=== PATIENT | female | born 1950 | race Hispanic/Latino ===

== ENCOUNTER → 2018-05-10 | Day surgery (SDC) | payer MEDICARE ==
[2018-05-02 15:05] LABS: BASOPHILS % 0.3 % (0.0-1.0); EOSINOPHILS # (AUTO) 0.1 (0.0-0.4); EOSINOPHILS % 0.6 % (0.0-6.0); HEMATOCRIT 45.8 % (34.2-44.1); HEMOGLOBIN 14.5 g/dL (12.0-16.0); LYMPHOCYTES # (AUTO) 1.6 (1.0-3.2); LYMPHOCYTES % 17.1 % (18.0-39.1); MEAN CORPUSCULAR HEMOGLOBIN 28.8 pg (28-32); MEAN CORPUSCULAR HGB CONC 31.7 g/dL (31-35); MEAN CORPUSCULAR VOLUME 91.1 fL (81-99); MONOCYTES # (AUTO) 0.6 (0.2-0.8); MONOCYTES % 6.6 % (4.4-11.3); NEUTROPHILS # (AUTO) 6.9 (2.1-6.9); NEUTROPHILS % 75.2 % (38.7-80.0); PLATELET COUNT 192 x10e3/uL (140-360); RED BLOOD COUNT 5.03 x10e6/uL (3.6-5.1); RED CELL DISTRIBUTION WIDTH 13.7 % (11.7-14.4)
[2018-05-02 15:25] LABS: ANION GAP 13.9 mmol/L (8-16); BLOOD UREA NITROGEN 14 mg/dL (7-26); BUN/CREATININE RATIO 21 (6-25); CALCIUM 9.4 mg/dL (8.4-10.2); CARBON DIOXIDE 27 mmol/L (22-29); CHLORIDE 97 mmol/L (98-107); CREATININE, SERUM 0.67 mg/dL (0.57-1.11); EST GLOMERULAR FILTRATION RATE > 60 ML/MIN (60-); GLUCOSE 129 mg/dL (74-118); POTASSIUM 3.9 mmol/L (3.5-5.1); SODIUM 134 mmol/L (136-145)
[~2018-05-10] MED LIST: ATORVASTATIN CA40 MG PO; BALANCED SALT SOLN (OPTH) 15 ML BTL IO ONE; BUPIVACAINE HC 0.75% PF 10ML VIAL INJ ONE; CHONDR SU A NA/HYALUR SOD 1 EACH KIT IO ONE; CYCLOPENTOLATE HCL 1% OPTH SOLN 2ML BTL ONE; EPINEPHRINE HCL 1:1000 1ML 1 MG/ML AMP ONE; FARXIGA PO; FENTANYL CITRATE/PF 100MCG/2 ML INJ ONE; GATIFLOXACIN(OPTH) 5 ML LIQD ONE; GLIPIZIDE XL10 MG PO; LIDOCAINE 2%/ EPINEPHRINE 20ML MDV ONE; LIDOCAINE HCL-PF 4% 40 MG/1 ML 5ML AMP ONE; LOSARTAN POTASS25 MG PO; METFORMIN HCL1000 MG PO; MULTIVITAMINS1 EAC7 PO; PHENYLEPHRINE HCL 2 ML DROPS ONE; PILOCARPINE HCL(OPTH) 15 ML LIQD ONE; POVIDONE IODINE 5% (OPTH) 30 ML BTL ONE; PROPOFOL IV EMULSION 10 MG/ML 20 ML VIAL ONE; TOBRAMYCIN/DEXAMETHASONE(OPTH) 3.5 GM TUBE ONE; VITAMIN D250000 UNIT PO
--- OUTSIDE RECORDS SUMMARY | 2018-05-10 07:43 | XMS REPORT | Continuity of Care Document ---
Author Author [facility] Interface Address Unknown Phone Unavailable Problems Problem Status Onset Date Classification Date Reported Comments Source ROUTINE MAMMO Active 01/24/2018 [facility] Elevated blood pressure reading without diagnosis of hypertension Active Problem 05/09/2018 [facility] Age-related osteoporosis without current pathological fracture Active Problem 05/09/2018 [facility] Obesity, morbid, BMI 40.0-49.9 Active Problem 05/09/2018 [facility] Primary Breast cancer screening Active Diagnosis 01/24/2018 [facility] Primary Type 2 diabetes mellitus with hyperglycemia, without long-term current use of insulin Active Problem 05/09/2018 [facility] Essential hypertension Active Problem 05/09/2018 [facility] Mixed hyperlipidemia Active Problem 05/09/2018 [facility] Low vitamin D level Active Problem 05/09/2018 [facility] Primary Other cataract of right eye Active Problem 05/09/2018 [facility] Primary Environmental allergies Active Problem 05/09/2018 [facility] Upper respiratory tract infection, unspecified type Active Diagnosis 03/10/2018 [facility] Medications Medication Details Route Status Patient Instructions Ordering Provider Order Date Source Fluticasone Propionate 1 spray in each nostril Nasally Active 50 MCG/ACT Nasally Once a day Eze 03/09/2018 [facility] ProAir HFA 2 puffs as needed Inhalation Active 108 (90 Base) MCG/ACT Inhalation every 6 hrs as needed Eze 03/09/2018 [facility] PredniSONE 1 tablet Orally Active 10 mg Orally Once a day Eze 03/09/2018 [facility] Benzonatate 1 capsule Orally Active 200 MG Orally Three times a day as needed Eze 03/09/2018 [facility] Levocetirizine Dihydrochloride 1 tablet in the evening Orally Active 5 MG Orally Once a day Eze 03/09/2018 [facility] Azithromycin as directed Orally Active 250 MG Orally Once a day Eze 03/09/2018 [facility] GlipiZIDE XL 1 tablet Orally Active 10 mg Orally Once a day Eze 02/06/2018 [facility] Losartan Potassium 1 tablet Orally Active 25 MG Orally Once a day Eze 02/06/2018 [facility] Farxiga 1 tablet Orally Active 10 mg Orally Once a day [facility] 02/06/2018 [facility] Atorvastatin Calcium 1 tablet Orally Active 40 mg Orally Once a day [facility] 02/06/2018 [facility] Metformin HCl 1 tablet with a meal Orally Active 1000 mg Orally twice a day (bid) [facility] 02/06/2018 [facility] Ergocalciferol 1 capsule Orally Active 47913 UNIT Orally once a week [facility] 02/06/2018 [facility] Atorvastatin Calcium 1 tablet Orally Active 40 mg Orally Once a day [facility] Losartan Potassium 1 tablet Orally Active 25 MG Orally Once a day [facility] GlipiZIDE XL 1 tablet Orally Active 10 mg Orally Once a day [facility] Farxiga 1 tablet Orally Active 10 mg Orally Once a day [facility] Ergocalciferol 1 capsule Orally Active 15193 UNIT Orally once a week [facility] Metformin HCl 1 tablet with a meal Orally Active 1000 mg Orally twice a day (bid) [facility] Allergies, Adverse Reactions, Alerts Substance Category Reaction Severity Reaction type Status Date Reported Comments Source N.K.D.A. Adverse Reaction Info Not Available Adverse Reaction Active 05/08/2018 [facility] Immunizations Immunization Date Given Site Status Last Updated Comments Source Results Order Name Results Value Reference Range Date Interpretation Comments Source Breast Mammo Scrn REGINA incl CAD MA Breast Mammo Scrn REGINA incl CAD MA BILATERAL DIGITAL SCREENING MAMMOGRAM WITH CAD: 02/07/2018 CLINICAL: /Routine. Current study was evaluated with a Computer Aided Detection (CAD) system. COMPARISON:Patient states that the last mammogram was taken over 10 years ago. TECHNIQUE: Mammographic views were obtained using digital acquisition. [employer] Version 1.3 was utilized for computer aided detection. FINDINGS: There are scattered fibroglandular densities in both breasts. There are benign vascular calcifications and calcifications in both breasts. No significant masses, calcifications, or other findings are seen in either breast. IMPRESSION: BENIGN RECOMMENDATION:There is no mammographic evidence of malignancy. A 1 year screening mammogram is recommended.(02/08/2019) This exam was interpreted at [id number] for [facility]. Delmar Diaz M.D. ap/penrad:02/07/2018 15:10:25 Wire Setter(s): Chloe Montalvo, [facility] letter sent: BI-RADS 1/2 Mammogram BI-RADS: 2 Benign 02/07/2018 - - Read by: Delmar Diaz MD Dictated Date/time: 02/07/18 15:10 Electronically Signed by: Delmar Diaz MD 02/07/18 15:10 FINAL REPORT [facility] Bone Density Scan Bone Density Scan Study: Bone Density Scan Clinical Indication: - M81.0 Age-related osteoporosis without current pathological fracture; Images of the axial lumbar spine and left hip have been performed using [employer] Discovery SL scanner. COMPARISON: None FINDINGS: The left hip bone mineral density is 102% of the peak reference bone mass with a T-score of 0.1. Left hip BMD is 0.957 g/cm2. Left femoral neck BMD is 0.947 g/cm2 and T-score of 0.9. The axial lumbar bone mineral density is 107% of the peak reference bone mass with a T-score 0.7. Axial lumbar average BMD is 1.120 g/cm2. There is increased bone mineral density at L4 which is likely due to degenerative changes. IMPRESSION: 1. Normal bone mineral density of the left femoral neck. 2. Normal bone mineral density of the total left hip. 3. Normal bone mineral density of the lumbar spine. The World Health Organization has established that OSTEOPOROSIS occurs at -2.5 or more standard deviations (SD) below peak bone mass (T-score on the Hologic report). OSTEOPENIA (low bone mass) occurs at greater than -1.0 standard deviations to -2.5 standard deviations below peak bone mass. SL: [id number] 02/07/2018 - - Read by: Delmar Diaz MD Dictated Date/time: 02/07/18 13:03 Electronically Signed by: Delmar Diaz MD 02/07/18 13:04 FINAL REPORT [facility] Vital Signs Vital Sign Value Date Comments Source Weight 223.6 05/08/2018 [facility] Height 63 05/08/2018 [facility] Temperature Oral (F) 98.1 F 05/08/2018 [facility] Heart Rate 67 05/08/2018 [facility] Diastolic (mm Hg) 76 05/08/2018 [facility] Systolic (mm Hg) 150 05/08/2018 [facility] Weight 236.9 03/09/2018 [facility] Height 63 03/09/2018 [facility] Primary Temperature Oral (F) 98.5 F 03/09/2018 [facility] Heart Rate 111 03/09/2018 [facility] Primary Diastolic (mm Hg) 89 03/09/2018 [facility] Primary Systolic (mm Hg) 142 03/09/2018 [facility] Primary Weight 236.6 03/07/2018 [facility] Height 63 03/07/2018 [facility] Primary Temperature Oral (F) 98.4 F 03/07/2018 [facility] Heart Rate 94 03/07/2018 [facility] Primary Diastolic (mm Hg) 76 03/07/2018 [facility] Primary Systolic (mm Hg) 147 03/07/2018 [facility] Primary Weight 243.9 02/06/2018 [facility] Height 63 02/06/2018 [facility] Primary Temperature Oral (F) 98.1 F 02/06/2018 [facility] Heart Rate 82 02/06/2018 [facility] Primary Diastolic (mm Hg) 81 02/06/2018 [facility] Systolic (mm Hg) 163 02/06/2018 [facility] Primary Weight 250.2 01/23/2018 [facility] Height 63 01/23/2018 [facility] Primary Temperature Oral (F) 98.4 F 01/23/2018 [facility] Heart Rate 86 01/23/2018 [facility] Primary Diastolic (mm Hg) 80 01/23/2018 [facility] Primary Systolic (mm Hg) 164 01/23/2018 [facility] Encounters Location Location Details Encounter Type Encounter Number Reason For Visit Attending Provider ADM Date DC Date Status Source Procedures Procedure Code Date Perfomer Comments Source
--- OUTSIDE RECORDS SUMMARY | 2018-05-10 07:43 | XMS REPORT ---
Author Author Marcia Loo [facility] eClinicalWorks Address Unknown Phone Unavailable Care Team Providers Care Aircraft Manager Name Role Phone Marcia Loo Unavailable Allergies, Adverse Reactions, Alerts Substance Reaction Event Type N.K.D.A. Info Not Available Non Drug Allergy Problems Problem Type Condition Code Onset Dates Condition Status Problem Obesity, morbid, BMI 40.0-49.9 E66.01 Active Problem BMI 40.0-44.9, adult Z68.41 Active Problem Elevated blood pressure reading without diagnosis of hypertension R03.0 Active Problem Other cataract of right eye H26.8 Active Problem Essential hypertension I10 Active Problem Environmental allergies Z91.09 Active Problem Mixed hyperlipidemia E78.2 Active Problem Age-related osteoporosis without current pathological fracture M81.0 Active Problem Type 2 diabetes mellitus with hyperglycemia, without long-term current use of insulin E11.65 Active Problem Low vitamin D level R79.89 Active Assessment Other cataract of right eye H26.8 Active Assessment Low vitamin D level R79.89 Active Assessment BMI 40.0-44.9, adult Z68.41 Active Assessment Obesity, morbid, BMI 40.0-49.9 E66.01 Active Assessment Type 2 diabetes mellitus with hyperglycemia, without long-term current use of insulin E11.65 Active Assessment Environmental allergies Z91.09 Active Assessment Essential hypertension I10 Active Assessment Upper respiratory tract infection, unspecified type J06.9 Active Assessment Mixed hyperlipidemia E78.2 Active Medications Medication Code System Code Instructions Start Date End Date Status Dosage PredniSONE [facility] 97540732708 10 mg Orally Once a day Mar 09, 2018 Mar 14, 2018 Active 1 tablet Benzonatate [facility] 72117849767 200 MG Orally Three times a day as needed Mar 09, 2018 Mar 19, 2018 Active 1 capsule Farxiga [facility] 75174597981 10 mg Orally Once a day Active 1 tablet GlipiZIDE XL [facility] 57260679339 10 mg Orally Once a day Active 1 tablet Levocetirizine Dihydrochloride [facility] 60502399081 5 MG Orally Once a day Mar 09, 2018 Apr 08, 2018 Active 1 tablet in the evening ProAir HFA [facility] 37282627106 108 (90 Base) MCG/ACT Inhalation every 6 hrs as needed Mar 09, 2018 Active 2 puffs as needed Metformin HCl [facility] 81734201714 1000 mg Orally twice a day (bid) Active 1 tablet with a meal Ergocalciferol [facility] 74720467235 78253 UNIT Orally once a week Active 1 capsule Losartan Potassium [facility] 36507125696 25 MG Orally Once a day Active 1 tablet Atorvastatin Calcium [facility] 62676913882 40 mg Orally Once a day Active 1 tablet Fluticasone Propionate [facility] 45541771729 50 MCG/ACT Nasally Once a day Mar 09, 2018 Active 1 spray in each nostril Azithromycin [facility] 48416309025 250 MG Orally Once a day Mar 09, 2018 Mar 14, 2018 Active as directed Vital Signs Date/Time: Mar 09, 2018 BMI 41.96 Index Weight 236.9 lbs Height 63 in Temperature 98.5 F Cardiac Monitoring Heart Rate 111 /min Blood Pressure Diastolic 89 mm Hg Blood Pressure Systolic 142 mm Hg Results No Known Results Summary Purpose eClinicalWorks Submission
--- OUTSIDE RECORDS SUMMARY | 2018-05-10 07:43 | XMS REPORT ---
Author Author Marcia Loo [facility] eClinicalWorks Address Unknown Phone Unavailable Care Team Providers Care Solar Applications Development Engineer Name Role Phone Marcia Loo Unavailable Allergies, [...] Obesity, morbid, BMI 40.0-49.9 E66.01 Active Assessment Essential hypertension I10 Active Assessment Mixed hyperlipidemia E78.2 Active Assessment Other cataract of right eye H26.8 Active Assessment Type 2 diabetes mellitus with hyperglycemia, without long-term current use of insulin E11.65 Active Assessment Low vitamin D level R79.89 Active Medications Medication Code System Code Instructions Start Date End Date Status Dosage Fluticasone Propionate ND 96675581660 50 MCG/ACT Nasally Once a day Mar 09, 2018 Active 1 spray in each nostril Ergocalciferol ND 06542802188 83283 UNIT Orally once a week Active 1 capsule Atorvastatin Calcium ND 20815290883 40 mg Orally Once a day Active 1 tablet GlipiZIDE XL ND 49478935411 10 mg Orally Once a day Active 1 tablet Losartan Potassium ND 54959405872 25 MG Orally Once a day Active 1 tablet ProAir HFA [facility]NOTE 2] 78197548033 108 (90 Base) MCG/ACT Inhalation every 6 hrs as needed Mar 09, 2018 Active 2 puffs as needed Metformin HCl [facility]NOTE 2] 25839705376 1000 mg Orally twice a day (bid) Active 1 tablet with a meal Farxiga [facility]NOTE 2] 06539250897 10 mg Orally Once a day Active 1 tablet Vital Signs Date/Time: May 08, 2018 BMI 39.60 Index Weight 223.6 lbs Height 63 in Temperature 98.1 F Cardiac Monitoring Heart Rate 67 /min Blood Pressure Diastolic 76 mm Hg Blood Pressure Systolic 150 mm Hg Results No Known Results Summary Purpose eClinicalWorks Submission
--- OUTSIDE RECORDS SUMMARY | 2018-05-10 07:43 | XMS REPORT ---
Author Author Marcia Loo Organization eClinicalWorks Address Unknown Phone Unavailable Care Team Providers Care Bilingual Hr Generalist Name Role Phone Marcia Loo Unavailable Allergies, Adverse Reactions, Alerts Substance Reaction Event Type N.K.D.A. Info Not Available Non Drug Allergy Problems Problem Type Condition Code Onset Dates Condition Status Assessment Elevated blood pressure reading without diagnosis of hypertension R03.0 Active Assessment Colon cancer screening Z12.11 Active Assessment Age-related osteoporosis without current pathological fracture M81.0 Active Assessment Obesity, morbid, BMI 40.0-49.9 E66.01 Active Assessment BMI 40.0-44.9, adult Z68.41 Active Problem Elevated blood pressure reading without diagnosis of hypertension R03.0 Active Problem Obesity, morbid, BMI 40.0-49.9 E66.01 Active Problem BMI 40.0-44.9, adult Z68.41 Active Assessment Annual physical exam Z00.00 Active Assessment Breast cancer screening Z12.31 Active Problem Age-related osteoporosis without current pathological fracture M81.0 Active Medications No Known Medications Vital Signs Date/Time: Jan 23, 2018 BMI 44.32 Index Weight 250.2 lbs Height 63 in Temperature 98.4 F Cardiac Monitoring Heart Rate 86 /min Blood Pressure Diastolic 80 mm Hg Blood Pressure Systolic 164 mm Hg Results No Known Results Summary Purpose eClinicalWorks Submission
--- OUTSIDE RECORDS SUMMARY | 2018-05-10 07:43 | XMS REPORT ---
Author Author Marcia Loo [facility] eClinicalWorks Address Unknown Phone Unavailable Care Team Providers Care Highway Patrol Commander Name Role Phone Marcia Loo Unavailable Allergies, Adverse Reactions, Alerts Substance Reaction Event Type N.K.D.A. Info Not Available Non Drug Allergy Problems Problem Type Condition Code Onset Dates Condition Status Assessment Annual physical exam Z00.00 Active Problem Obesity, morbid, BMI 40.0-49.9 E66.01 Active Problem Essential hypertension I10 Active Problem Type 2 diabetes mellitus with hyperglycemia, without long-term current use of insulin E11.65 Active Problem Mixed hyperlipidemia E78.2 Active Problem BMI 40.0-44.9, adult Z68.41 Active Problem Elevated blood pressure reading without diagnosis of hypertension R03.0 Active Problem Low vitamin D level R79.89 Active Problem Age-related osteoporosis without current pathological fracture M81.0 Active Assessment BMI 40.0-44.9, adult Z68.41 Active Assessment Essential hypertension I10 Active Assessment Mixed hyperlipidemia E78.2 Active Assessment Obesity, morbid, BMI 40.0-49.9 E66.01 Active Assessment Type 2 diabetes mellitus with hyperglycemia, without long-term current use of insulin E11.65 Active Assessment Low vitamin D level R79.89 Active Assessment Colon cancer screening Z12.11 Active Medications Medication Code System Code Instructions Start Date End Date Status Dosage Atorvastatin Calcium ND 20382020947 40 mg Orally Once a day Active 1 tablet Losartan Potassium ND 48862021698 25 MG Orally Once a day Active 1 tablet GlipiZIDE XL ND 50522700985 10 mg Orally Once a day Active 1 tablet Farxiga ND 16988211669 10 mg Orally Once a day Active 1 tablet Ergocalciferol [facility] 10414245974 95736 UNIT Orally once a week Active 1 capsule Metformin HCl ND 09309937492 1000 mg Orally twice a day (bid) Active 1 tablet with a meal Vital Signs Date/Time: Mar 07, 2018 BMI 41.91 Index Weight 236.6 lbs Height 63 in Temperature 98.4 F Cardiac Monitoring Heart Rate 94 /min Blood Pressure Diastolic 76 mm Hg Blood Pressure Systolic 147 mm Hg Results No Known Results Summary Purpose eClinicalWorks Submission
--- OUTSIDE RECORDS SUMMARY | 2018-05-10 07:43 | XMS REPORT ---
Author Author Marcia Loo [facility] eClinicalWorks Address Unknown Phone Unavailable Care Team Providers Care Furniture Restorer Name Role Phone Marcia Loo Unavailable Allergies, Adverse Reactions, Alerts Substance Reaction Event Type N.K.D.A. Info Not Available Non Drug Allergy Problems Problem Type Condition Code Onset Dates Condition Status Assessment Type 2 diabetes mellitus with hyperglycemia, without long-term current use of insulin E11.65 Active Problem Obesity, morbid, BMI 40.0-49.9 E66.01 [...] Obesity, morbid, BMI 40.0-49.9 E66.01 Active Assessment Low vitamin D level R79.89 Active Assessment Essential hypertension I10 Active Assessment BMI 40.0-44.9, adult Z68.41 Active Assessment Mixed hyperlipidemia E78.2 Active Medications Medication Code System Code Instructions Start Date End Date Status Dosage GlipiZIDE XL [facility] 97551850184 10 mg Orally Once a day Feb 06, 2018 Active 1 tablet Losartan Potassium ND 96207793123 25 MG Orally Once a day Feb 06, 2018 Active 1 tablet Farxiga ND 80262022195 10 mg Orally Once a day Feb 06, 2018 August 05, 2018 Active 1 tablet Atorvastatin Calcium ND 64117287826 40 mg Orally Once a day Feb 06, 2018 Active 1 tablet Metformin HCl [facility] 91740693034 1000 mg Orally twice a day (bid) Feb 06, 2018 Active 1 tablet with a meal Ergocalciferol [facility] 63603442582 15525 UNIT Orally once a week Feb 06, 2018 May 07, 2018 Active 1 capsule Vital Signs Date/Time: Feb 06, 2018 BMI 43.20 Index Weight 243.9 lbs Height 63 in Temperature 98.1 F Cardiac Monitoring Heart Rate 82 /min Blood Pressure Diastolic 81 mm Hg Blood Pressure Systolic 163 mm Hg Results No Known Results Summary Purpose eClinicalWorks Submission
[2018-05-10 10:55] VITALS: BP 132/78
== END | disposition home or self-care (01) ==
LOC: OR 07:40
PROVIDERS: ATTEND Ophthalmology
DX: H25.11 Age-related nuclear cataract, right eye (principal); E11.9 Type 2 diabetes mellitus without complications; I10 Essential (primary) hypertension; Z88.6 Allergy status to analgesic agent; Z01.810 Encounter for preprocedural cardiovascular examination; Z01.812 Encounter for preprocedural laboratory examination; Z79.84 Long term (current) use of oral hypoglycemic drugs
CPT/HCPCS: 36415 ×2; 66982; 80048; 82948; 85025; 93005; J0171; J2001; J2704; V2632

== ENCOUNTER → 2018-06-21 | Day surgery (SDC) | payer MEDICARE ==
[~2018-06-21] MED LIST changes: -BALANCED SALT SOLN (OPTH) 15 ML BTL IO ONE; -BUPIVACAINE HC 0.75% PF 10ML VIAL INJ ONE; +CALCIUM ACETAT667 MG PO; -CHONDR SU A NA/HYALUR SOD 1 EACH KIT IO ONE; -CYCLOPENTOLATE HCL 1% OPTH SOLN 2ML BTL ONE; +CYCLOPENTOLATE HCL 1% OPTH SOLN 2ML BTL OP ONE; -EPINEPHRINE HCL 1:1000 1ML 1 MG/ML AMP ONE; -GATIFLOXACIN(OPTH) 5 ML LIQD ONE; -LIDOCAINE 2%/ EPINEPHRINE 20ML MDV ONE; -LIDOCAINE HCL-PF 4% 40 MG/1 ML 5ML AMP ONE; +MIDAZOLAM HCL 2 MG/2 ML VIAL ONE; -PHENYLEPHRINE HCL 2 ML DROPS ONE; -PILOCARPINE HCL(OPTH) 15 ML LIQD ONE; -POVIDONE IODINE 5% (OPTH) 30 ML BTL ONE; -TOBRAMYCIN/DEXAMETHASONE(OPTH) 3.5 GM TUBE ONE
[2018-06-21 10:35] VITALS: BP 120/71
== END | disposition home or self-care (01) ==
LOC: OR 07:50
PROVIDERS: ATTEND Ophthalmology
DX: H25.12 Age-related nuclear cataract, left eye (principal); E11.9 Type 2 diabetes mellitus without complications; I10 Essential (primary) hypertension; Z88.6 Allergy status to analgesic agent; Z79.84 Long term (current) use of oral hypoglycemic drugs
CPT/HCPCS: 36415; 66982; 82948; J2250; J2704; V2632